=== PATIENT | female | born 1970 | race Caucasian/White ===

== ENCOUNTER 2017-07-15 09:07 | Emergency (ER) | payer MEDICAID ==
[~2017-07-15] VITALS: Ht 157.5 cm; Wt 88.0 kg
[~2017-07-15 09:07] MED LIST: ALBU05; PROAIR
[2017-07-15] MEDS ORDERED: KETOROLAC 60MG/2ML VIAL IM ONE (10:45)
[2017-07-15 12:06] VITALS: BP 143/85
== END 2017-07-15 12:25 | disposition home or self-care (01) ==
LOC: ER 10:37
DX: M25.561 Pain in right knee (principal); G89.29 Other chronic pain; I10 Essential (primary) hypertension; J45.909 Unspecified asthma, uncomplicated
CPT/HCPCS: 73562; 81025; 96372; 99284; J1885; L1830; Z7610

== ENCOUNTER 2019-03-31 01:01 | Emergency (ER) | payer MEDICAID ==
[~2019-03-31] VITALS: Ht 154.9 cm; Wt 86.0 kg
[~2019-03-31 01:01] MED LIST changes: +LISI-604 PO
[2019-03-31] MEDS ORDERED: DIAZEPAM 5 MG/ML 2ML CPJ IV ONE (01:45)
[2019-03-31] MEDS ORDERED: KETOROLAC 30MG/ML VIAL IV ONE (01:45)
[2019-03-31 03:59] LABS: HEMATOCRIT 26.2 % (36.0-48.0); HEMOGLOBIN 8.2 g/dL (12.0-16.0); MEAN CORPUSCULAR HEMOGLOBIN 22.1 pg (28.0-32.0); MEAN CORPUSCULAR VOLUME 70.9 fL (81.0-99.0); PLATELET 301 x1000/uL (130-400); RED CELL DISTRIBUTION WIDTH 19.1 % (11.6-14.6)
[2019-03-31 04:04] LABS: CHLORIDE 107 mEq/L (98-107)
[2019-03-31] MEDS ORDERED: IOHEXOL-350 100 ML BOTTLE ONE (04:38)
[2019-03-31] MEDS ORDERED: LIDOCAINE 5% PATCH TOP SCH (05:30)
[2019-03-31] MEDS ORDERED: IBUPROFEN 600MG TABLET PO ONE (05:30)
[2019-03-31 05:32] VITALS: BP 120/78
== END 2019-03-31 05:43 | disposition home or self-care (01) ==
LOC: ER 01:01
DX: M62.838 Other muscle spasm (principal); M54.2 Cervicalgia; H53.8 Other visual disturbances; J45.909 Unspecified asthma, uncomplicated; I10 Essential (primary) hypertension; Z79.899 Other long term (current) drug therapy
CPT/HCPCS: 36415; 70498; 80053; 85027; 93005; 96374; 96375; 99284; J1885; J3360; Q9967

== ENCOUNTER 2020-02-07 04:23 | Emergency (ER) | payer MEDICAID ==
[~2020-02-07] VITALS: Ht 154.9 cm; Wt 91.0 kg
[2020-02-07] MEDS ORDERED: SODIUM CHLORIDE 0.9% 1,000 ML IV SCH (04:27)
[2020-02-07] MEDS ORDERED: FAMOTIDINE 20MG/2ML VIAL IV ONE (04:30)
[2020-02-07] MEDS ORDERED: METHYLPREDNISOLONE SOD SUCC 125 MG/2 ML VIAL IV ONE (04:30)
[2020-02-07] MEDS ORDERED: DIPHENHYDRAMINE 50MG/ML VIAL IV ONE (04:30)
[2020-02-07] MEDS ORDERED: EPINEPHRINE 1:1000 1 MG/ML AMP IM ONE (05:15)
[2020-02-07] MEDS ORDERED: IPRATROPIUM BROMIDE (0.02%) 0.5MG/2.5ML NEB HHN STA (06:05)
[2020-02-07] MEDS ORDERED: ALBUTEROL (0.083%) 2.5MG/3ML NEB HHN STA (06:05)
[2020-02-07 06:54] VITALS: BP 170/53
== END 2020-02-07 06:58 | disposition home or self-care (01) ==
LOC: ER 04:23
DX: T78.1XXA Other adverse food reactions, not elsewhere classified, initial encounter (principal); J45.901 Unspecified asthma with (acute) exacerbation; I10 Essential (primary) hypertension; Z79.899 Other long term (current) drug therapy; X58.XXXA Exposure to other specified factors, initial encounter
CPT/HCPCS: 94640; 96372; 96374; 96375; 99284; J1200; J2930; J3490; Z7610

== ENCOUNTER 2021-07-30 20:45 | Inpatient (IN) | payer MEDICAID ==
[~2021-07-30] VITALS: Ht 154.9 cm; Wt 97.5 kg
[~2021-07-30 20:45] MED LIST changes: -LISI-604 PO; +LISI20TA31 PO
[2021-07-30] MEDS ORDERED: PREDNISONE 20MG TABLET PO STA (21:33)
[2021-07-30] MEDS ORDERED: IPRATROPIUM BROMIDE (0.02%) 0.5MG/2.5ML NEB HHN STA ×2 (21:33→22:47)
[2021-07-30] MEDS ORDERED: ALBUTEROL (0.083%) 2.5MG/3ML NEB HHN STA ×2 (21:33→22:47)
[2021-07-30] MEDS ORDERED: P50 MT (23:00)
[2021-07-30] MEDS ORDERED: TERBUTALINE SULFATE 1MG/ML VIAL SUBCUT ONE (23:00)
[2021-07-30] MEDS ORDERED: ALBU6.7H15 INH (23:00)
[2021-07-30] MEDS ORDERED: MAGNESIUM 2 G PREMIX 50 ML IV ONE (23:45)
[2021-07-31 00:12] LABS: HEMATOCRIT 29.3 % (36.0-48.0); HEMOGLOBIN 9.6 g/dL (12.0-16.0); MEAN CORPUSCULAR HEMOGLOBIN 27.4 pg (28.0-32.0); MEAN CORPUSCULAR VOLUME 83.8 fL (81.0-99.0); PLATELET 389 x1000/uL (130-400); RED BLOOD CELL COUNT 3.49 mill/uL (4.2-5.4); RED CELL DISTRIBUTION WIDTH 16.5 % (11.6-14.6)
[2021-07-31 00:13] LABS: CHLORIDE 108 mEq/L (98-107)
[2021-07-31] MEDS: ACETAMINOPHEN 325MG TABLET PO PRN ×3 (03:07→23:27)
[2021-07-31] MEDS ORDERED: MORPHINE SULFATE 2 MG/ML CPJ (NOT FOR IM USE) IV PRN (07:15)
[2021-07-31] MEDS ORDERED: NALOXONE HCL 0.4MG/ML VIAL IV PRN (09:00)
[2021-07-31] MEDS ORDERED: CLONIDINE 0.1MG TABLET PO PRN (16:30)
[2021-07-31] MEDS ORDERED: MAGNESIUM/ALUMINUM HYDROXIDE/SIMETHICONE 30ML UDC PO PRN (16:30)
[2021-07-31] MEDS ORDERED: IPRATROPIUM/ALBUTEROL 0.5-3(2.5)MG/3ML NEB HHN PRN (16:30)
[2021-07-31] MEDS ORDERED: ACETAMINOPHEN 325MG TABLET PO PRN (16:30)
[2021-07-31] MEDS ORDERED: ONDANSETRON HCL 4MG/2ML INJ IV PRN (16:30)
[2021-07-31] MEDS: ENOXAPARIN 30MG/0.3ML SYR SUBCUT SCH (17:54)
[2021-07-31] MEDS: METHYLPREDNISOLONE SOD SUCC 125 MG/2 ML VIAL IV SCH ×2 (17:55→23:27)
[2021-07-31] MEDS: MONTELUKAST SODIUM 10MG TABLET PO SCH (19:07)
[2021-07-31 22:18] VITALS: BP 153/71
[2021-07-31 22:41] VITALS: BP 153/71
[2021-08-01] VITALS: BP 123/65
[2021-08-01 04:00] VITALS: BP 151/78
[2021-08-01] MEDS: METHYLPREDNISOLONE SOD SUCC 125 MG/2 ML VIAL IV SCH (06:01)
[2021-08-01] MEDS: ENOXAPARIN 30MG/0.3ML SYR SUBCUT SCH ×2 (06:01→17:48)
[2021-08-01] MEDS: OMEPRAZOLE 20MG CAPSULE EXTENDED RELEASE PO SCH (06:01)
[2021-08-01 08:00] VITALS: BP 141/64
[2021-08-01 09:25] LABS: BASOPHILS % 0.1 % (0.0-2.0); HEMATOCRIT. 32.8 % (36.0-48.0); HEMOGLOBIN. 10.6 g/dL (12.0-16.0); LYMPHOCYTES % 12.1 % (20.0-50.0); MEAN CORPUSCULAR HEMOGLOBIN 27.5 pg (28.0-32.0); MEAN PLATELET VOLUME 7.3 fl (7.4-10.4); NEUTROPHILS % 86.8 % (40.0-76.0); PLATELET 439 x1000/uL (130-400); RED BLOOD CELL COUNT 3.86 mill/uL (4.2-5.4); RED CELL DISTRIBUTION WIDTH 16.5 % (11.6-14.6)
[2021-08-01 10:02] LABS: CHLORIDE 103 mEq/L (98-107)
[2021-08-01 10:09] LABS: HDL CHOLESTEROL 81 mg/dL (40-59); LDL CHOLESTEROL 98 mg/dL (5-100)
[2021-08-01] MEDS: HYDROCODONE/ACETAMINOPHEN 5/325MG TABLET PO PRN (10:10)
[2021-08-01 10:11] LABS: T4 FREE 0.83 ng/dL (0.76-1.46)
[2021-08-01 12:00] VITALS: BP 154/84
[2021-08-01 14:58] LABS: *AMPHETAMINES SCREEN URINE NEGATIVE (NEGATIVE); *BARBITURATES SCREEN URINE NEGATIVE (NEGATIVE); *BENZODIAZEPINES SCREEN URINE NEGATIVE (NEGATIVE); *COCAINE SCREEN URINE PRESUMTIVE POSITIVE (NEGATIVE); METHADONE URINE SCREEN NEGATIVE (NEGATIVE)
[2021-08-01 14:59] LABS: CANNABINOID URINE SCREEN NEGATIVE (NEGATIVE); OPIATES URINE SCREEN NEGATIVE (NEGATIVE); PHENCYCLIDINE URINE SCREEN NEGATIVE (NEGATIVE)
[2021-08-01 16:00] VITALS: BP 151/80
[2021-08-01] MEDS ORDERED: DEXTROSE 50% WATER 50ML SYRINGE IV PRN ×2 (17:30)
[2021-08-01] MEDS: METHYLPREDNISOLONE SOD SUCC 40 MG/ML VIAL IV SCH (17:47)
[2021-08-01] MEDS: AMLODIPINE 5MG TABLET PO SCH (17:47)
[2021-08-01] MEDS: MONTELUKAST SODIUM 10MG TABLET PO SCH (17:48)
[2021-08-01 20:00] VITALS: BP 152/70
[2021-08-01] MEDS: IPRATROPIUM/ALBUTEROL 0.5-3(2.5)MG/3ML NEB HHN SCH (21:28)
[2021-08-01] MEDS: INSULIN LISPRO 100 UNITS/ML SUBCUT SCH (21:49)
[2021-08-01] MEDS: BLOOD SUGAR DIAGNOSTIC STRIP TEST SCH (21:50)
[2021-08-02] VITALS: BP 147/72
[2021-08-02] MEDS: IPRATROPIUM/ALBUTEROL 0.5-3(2.5)MG/3ML NEB HHN SCH (02:46)
[2021-08-02 04:00] VITALS: BP 143/86
[2021-08-02] MEDS: OMEPRAZOLE 20MG CAPSULE EXTENDED RELEASE PO SCH (06:09)
[2021-08-02] MEDS: BLOOD SUGAR DIAGNOSTIC STRIP TEST SCH ×4 (06:10→21:27)
[2021-08-02] MEDS: ENOXAPARIN 30MG/0.3ML SYR SUBCUT SCH ×2 (06:10→17:05)
[2021-08-02] MEDS: INSULIN LISPRO 100 UNITS/ML SUBCUT SCH ×4 (06:10→20:50)
[2021-08-02 07:24] LABS: BASOPHILS % 0.1 % (0.0-2.0); HEMATOCRIT. 31.6 % (36.0-48.0); HEMOGLOBIN. 10.2 g/dL (12.0-16.0); LYMPHOCYTES % 21.3 % (20.0-50.0); MEAN CORPUSCULAR HEMOGLOBIN 27.4 pg (28.0-32.0); MEAN CORPUSCULAR VOLUME 84.7 fL (81.0-99.0); MEAN PLATELET VOLUME 7.3 fl (7.4-10.4); MONOCYTES % 5.9 % (2.0-8.0); NEUTROPHILS % 72.7 % (40.0-76.0); PLATELET 414 x1000/uL (130-400); RED BLOOD CELL COUNT 3.73 mill/uL (4.2-5.4); RED CELL DISTRIBUTION WIDTH 16.2 % (11.6-14.6)
[2021-08-02 07:46] LABS: CHLORIDE 105 mEq/L (98-107)
[2021-08-02 08:00] VITALS: BP 151/81
[2021-08-02] MEDS: METHYLPREDNISOLONE SOD SUCC 40 MG/ML VIAL IV SCH ×2 (08:45→16:56)
[2021-08-02] MEDS: AMLODIPINE 5MG TABLET PO SCH (08:46)
[2021-08-02] MEDS: HYDROCODONE/ACETAMINOPHEN 5/325MG TABLET PO PRN (08:46)
[2021-08-02 12:00] VITALS: BP 147/72
[2021-08-02 16:00] VITALS: BP 149/73
[2021-08-02] MEDS: MONTELUKAST SODIUM 10MG TABLET PO SCH (16:56)
[2021-08-02] MEDS ORDERED: ALPRAZOLAM 0.25 MG TABLET PO NR (17:15)
[2021-08-02] MEDS ORDERED: MAGNESIUM CITRATE 300ML SOLUTION PO NR (18:00)
[2021-08-02 20:00] VITALS: BP 141/73
[2021-08-03] VITALS: BP_SYST 158; BP_SYST 169; BP_SYST 181; BP_DIAS 84; BP_DIAS 88; BP_DIAS 93
[2021-08-03 04:00] VITALS: BP 151/70
[2021-08-03] MEDS: BLOOD SUGAR DIAGNOSTIC STRIP TEST SCH ×2 (06:03→12:17)
[2021-08-03] MEDS: INSULIN LISPRO 100 UNITS/ML SUBCUT SCH ×2 (06:03→12:10)
[2021-08-03] MEDS: ENOXAPARIN 30MG/0.3ML SYR SUBCUT SCH (06:19)
[2021-08-03] MEDS ORDERED: PREDNISONE 20MG TABLET PO SCH (07:10)
[2021-08-03 08:00] VITALS: BP 167/78
[2021-08-03] MEDS ORDERED: FAMOTIDINE 20MG TABLET PO SCH (09:00)
[2021-08-03] MEDS: AMLODIPINE 5MG TABLET PO SCH (09:20)
[2021-08-03 12:08] VITALS: BP 165/84
[2021-08-03] MEDS: IPRATROPIUM/ALBUTEROL 0.5-3(2.5)MG/3ML NEB HHN SCH (12:10)
[2021-08-03] MEDS: ACETAMINOPHEN 325MG TABLET PO PRN (12:39)
[2021-08-03] MEDS ORDERED: MONT10TA21 PO (14:05)
[2021-08-03 14:46] VITALS: BP 147/89
== END 2021-08-03 14:30 | disposition home or self-care (01) | DRG 816 ==
LOC: ER 20:45 → MICUSO 07-31 00:52 → EDBEDREQDT 07-31 01:08 → EDBEDREQ 07-31 01:08 → EDBEDREQTM 07-31 01:08 → 7EST 07-31 21:27
PROVIDERS: ADMIT Internal Medicine; ATTEND Internal Medicine
DX: T40.5X1A Poisoning by cocaine, accidental (unintentional), initial encounter (principal); J96.01 Acute respiratory failure with hypoxia; J45.901 Unspecified asthma with (acute) exacerbation; E83.51 Hypocalcemia; D64.9 Anemia, unspecified; E11.65 Type 2 diabetes mellitus with hyperglycemia; D72.829 Elevated white blood cell count, unspecified; Z20.822 Contact with and (suspected) exposure to COVID-19; I10 Essential (primary) hypertension; E78.5 Hyperlipidemia, unspecified; F14.10 Cocaine abuse, uncomplicated; R51.9 Headache, unspecified; Y92.89 Other specified places as the place of occurrence of the external cause
CPT/HCPCS: 36415; 71045; 80048; 80061; 80305; 82962; 83036; 83735; 83880; 84100; 84439; 84443; 84484; 85025; 85027; 87426; 94640; 99285; J1650; J1815; J2270; J2920; J2930; J3105; J3475; J7512

== ENCOUNTER 2022-06-27 00:41 | Emergency (ER) | payer MEDICAID ==
[~2022-06-27] VITALS: Ht 154.9 cm; Wt 92.5 kg
[~2022-06-27 00:41] MED LIST changes: +MONT10TA21 PO; -PROAIR
[2022-06-27] MEDS ORDERED: ACETAMINOPHEN 500MG TABLET PO ONE (03:00)
[2022-06-27] MEDS ORDERED: TRAMADOL 50MG TABLET PO ONE (03:00)
[2022-06-27 03:17] LABS: BASOPHILS % 1.4 % (0.0-2.0); EOSINOPHILS % 5.9 % (0.0-5.0); HEMATOCRIT. 24.9 % (36.0-48.0); HEMOGLOBIN. 7.2 g/dL (12.0-16.0); MEAN CORPUSCULAR HEMOGLOBIN 18.9 pg (28.0-32.0); MEAN CORPUSCULAR VOLUME 65.2 fL (81.0-99.0); MEAN PLATELET VOLUME 6.1 fl (7.4-10.4); MONOCYTES % 7.4 % (2.0-8.0); NEUTROPHILS % 52.3 % (40.0-76.0); PLATELET 650 x1000/uL (130-400); RED BLOOD CELL COUNT 3.82 mill/uL (4.2-5.4); RED CELL DISTRIBUTION WIDTH 19.4 % (11.6-14.6)
[2022-06-27 03:25] LABS: CHLORIDE 101 mEq/L (98-107)
[2022-06-27 03:51] LABS: PLATELET ESTIMATE SLIGHTLY INCREASED
[2022-06-27] MEDS ORDERED: IBUP-2029 MT (04:49)
[2022-06-27] MEDS ORDERED: TRAM50TA MT (04:49)
[2022-06-27 05:13] VITALS: BP 140/76
== END 2022-06-27 05:46 | disposition home or self-care (01) ==
LOC: ER 00:57
DX: R07.9 Chest pain, unspecified (principal); M54.12 Radiculopathy, cervical region; J45.909 Unspecified asthma, uncomplicated; I10 Essential (primary) hypertension
CPT/HCPCS: 36415; 72040; 80053; 84484; 85025; 93005; 99285

== ENCOUNTER 2022-07-18 18:14 | Emergency (ER) | payer MEDICAID ==
[~2022-07-18] VITALS: Ht 154.9 cm; Wt 91.0 kg
[~2022-07-18 18:14] MED LIST changes: +IBUP-2029 MT; +TRAM50TA MT
[2022-07-18 18:30] VITALS: BP 166/55
== END 2022-07-18 18:58 | disposition left against medical advice (07) ==
LOC: ER 18:14
DX: Z53.21 Procedure and treatment not carried out due to patient leaving prior to being seen by health care provider (principal)
CPT/HCPCS: 82962; 93005

== ENCOUNTER 2025-05-11 22:46 | Emergency (ER) | payer OTHER ==
[~2025-05-11] VITALS: Ht 154.9 cm; Wt 87.0 kg
[~2025-05-11 22:46] MED LIST changes: +ALBU6.7H15 INH; +CIPR-263 MT; +FERR-71 MT; -IBUP-2029 MT; +LOSA25TA26 MT; +MONT-46 PO; -MONT10TA21 PO; +OMEP20CA14 MT; +SUCR1TAB30 PO; +ZOLP1.754 SL
[2025-05-12] MEDS ORDERED: METHYLPREDNISOLONE 40MG/ML INJ IV ONE (01:00)
[2025-05-12] MEDS: ACETAMINOPHEN 325MG TABLET PO ONE (01:01)
[2025-05-12] MEDS: ONDANSETRON 4MG ODT PO ONE (01:01)
[2025-05-12 01:45] VITALS: PULSE 94; RESP 18; O2SAT 98
[2025-05-12] MEDS: IPRATROPIUM/ALBUTEROL 0.5-3(2.5)MG/3ML NEB HHN ONE (01:45)
[2025-05-12 01:46] LABS: BASOPHILS % 0.5 % (0.0-2.0); EOSINOPHILS % 2.2 % (0.0-5.0); HEMATOCRIT. 27.6 % (36.0-48.0); HEMOGLOBIN. 8.7 g/dL (12.0-16.0); LYMPHOCYTES % 16.5 % (20.0-50.0); MEAN PLATELET VOLUME 7.0 fl (7.4-10.4); MONOCYTES % 8.1 % (2.0-8.0); NEUTROPHILS % 72.7 % (40.0-76.0); PLATELET 369 x1000/uL (130-400); RED BLOOD CELL COUNT 3.57 mill/uL (4.2-5.4); RED CELL DISTRIBUTION WIDTH 16.5 % (11.6-14.6)
[2025-05-12 01:57] LABS: CREATININE 0.8 mg/dL (0.6-1.0)
[2025-05-12 01:58] LABS: UREA NITROGEN BLOOD 14 mg/dL (9-23)
[2025-05-12] MEDS: METHYLPREDNISOLONE SOD SUCC 125MG/2ML (ACT-O-VIAL) IM SCH (02:11)
[2025-05-12] MEDS ORDERED: PRED5TAB48 MT (02:45)
[2025-05-12] MEDS ORDERED: NAPR-1176 MT (02:45)
[2025-05-12 03:10] VITALS: BP 129/72; PULSE 80; RESP 19; TEMP 37; O2SAT 98
[2025-05-12] MEDS ORDERED: ONDA4TAB50 MT (03:16)
== END 2025-05-12 03:11 | disposition home or self-care (01) ==
LOC: ER 22:46
DX: J45.901 Unspecified asthma with (acute) exacerbation (principal); B34.9 Viral infection, unspecified; I10 Essential (primary) hypertension; F10.90 Alcohol use, unspecified, uncomplicated; Z79.1 Long term (current) use of non-steroidal anti-inflammatories (NSAID); Z79.899 Other long term (current) drug therapy; Y90.9 Presence of alcohol in blood, level not specified
CPT/HCPCS: 99284; 80048; 85025; 36415; 71045; 94640; 96372; Q0162; J2919; Z7610 ×3; 94070; 94664; 98960